=== PATIENT | male | born 1970 | race Caucasian/White ===

== ENCOUNTER 2020-07-05 19:24 | Emergency (ER) | payer SELFPAY ==
[~2020-07-05] VITALS: Ht 167.6 cm; Wt 91.0 kg
[2020-07-05] MEDS ORDERED: ONDANSETRON HCL 4MG/2ML INJ IM ONE (19:45)
[2020-07-05] MEDS ORDERED: ONDA4TAB5 MT (20:14)
[2020-07-05] MEDS ORDERED: ONDANSETRON 4MG ODT PO ONE (20:15)
[2020-07-05 21:35] VITALS: BP 136/85
== END 2020-07-05 21:44 | disposition home or self-care (01) ==
LOC: ER 19:24
DX: R11.2 Nausea with vomiting, unspecified (principal); F10.129 Alcohol abuse with intoxication, unspecified; Y90.0 Blood alcohol level of less than 20 mg/100 ml
CPT/HCPCS: 93005; 96372; 99283; J2405; Q0162